=== PATIENT | female | born 1975 | race American Indian/Alaskan Native ===

== ENCOUNTER 2018-06-16 06:25 | Day surgery (SDC) | payer OTHER ==
[2018-06-16] MEDS ORDERED: LACTATED RINGERS 1,000 ML IV SCH (07:00)
--- NOTE | 2018-06-16 07:33 | Anesthesia Consultation ---
Anesthesia Consult and Med Hx Date of service: 06/16/18 - Airway Anesthetic Teeth Evaluation: Good ROM Head & Neck: Adequate Mental/Hyoid Distance: Adequate Mallampati Class: Class II Intubation Access Assessment: Probably Good - Pre-Operative Health Status ASA Pre-Surgery Classification: ASA3 - Central Nervous System Hx Back Pain: Yes (lumbar spinal stenosis) Hx Psychiatric Problems: No - Other Systems Hx Alcohol Use: Yes (Occas) Hx Cancer: No Hx Obesity: Yes (BMI 41.2)
--- NOTE | 2018-06-16 07:35 | Anesthesia Day of Surgery ---
Anesthesia Day of Surgery - Day of Surgery Patient Examined: Yes Patient H&P Reviewed: Yes Patient is NPO: Yes
--- NOTE | 2018-06-16 07:49 | Short Stay Summary ---
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 The patient has been treated in the past with cryosurgery and CKC. Her medical history is complicated by +HIV status. She elects for surgical management. - History Principal diagnosis: Mild cervical dysplasia Past Medical History: other (spinal stenosis) Past Surgical History: cholecystectomy, Other (cryosurgery; CKC; colostomy) Social history: single - Allergies and Medications Current Medications: Allergies No Known Allergies Allergy (Unverified 06/13/18 16:30) Home Medications Medication Instructions Recorded Confirmed Last Taken Type Emtricitab/Rilpiviri/Tenof Ala 1 tab PO DAILY 06/13/18 06/13/18 Unknown History [Odefsey Tablet] Active Medications Lactated Ringer's (Lactated Ringers) 1,000 mls @ 75 mls/hr IV DIRECT ANIBAL - Physical exam General appearance: no acute distress Integumentary: no rash HEENT: Atraumatic Lungs: Clear to auscultation Breasts: deferred Heart: Regular rate Gastrointestinal: normal Female Genitourinary: deferred Rectal Exam: deferred Extremities: no ischemia Neurological: Normal gait - Brief post op/procedure progress note Date of procedure: 06/16/18 Pre-op diagnosis: cervical dysplasia Post-op diagnosis: same Procedure: Loop electrocautery excision procedure and endocervical curettage Anesthesia: DESIREEA Surgeon: DRAKE ARCHIBALD Estimated blood loss: minimal Pathology: list (ectocervical tissue and endocervical curettings) Specimen disposition: to lab Condition: stable - Hospital course Hospital course: The patient was admitted the day of surgery and underwent a LEEP procedure. Please see operative note for details of surgery. Postoperative course is uneventful. - Disposition Condition at discharge: Good Disposition: [id number] TO HOME OR SELFCARE Short Stay Discharge Plan Activity: other (pelvic rest for 4 weeks) Diet: regular Additional Instructions: Scheduled postoperative visit with Dr. Avery in 4 weeks Prescriptions: Acetaminophen/Codeine [Tylenol /Codeine # 3 tab] 1 tab PO Q6H PRN #20 tab PRN Reason: Pain, Mild (1-3) Ibuprofen [Motrin] 800 mg PO Q8HR PRN #60 tablet PRN Reason: Pain, Mild (1-3)
[2018-06-16] MEDS ORDERED: ANCEF/STERILE WATER 2 GM/20 ML 2 GM/20 ML SYRINGE IV NR (08:00)
[2018-06-16] MEDS ORDERED: DIPRIVAN 10 MG/ML IV ONE (08:21)
[2018-06-16] MEDS ORDERED: XYLOCAINE MPF 2% ONE (08:21)
[2018-06-16] MEDS ORDERED: SUBLIMAZE ONE ×2 (08:21→08:56)
[2018-06-16] MEDS ORDERED: ZOFRAN ONE (08:45)
[2018-06-16] MEDS ORDERED: DECADRON ONE (08:45)
[2018-06-16] MEDS ORDERED: LUGOL'S SOLUTION 5% TP ONE (09:00)
[2018-06-16] MEDS ORDERED: MONSEL'S TP ONE (09:00)
[2018-06-16] MEDS ORDERED: NACL 0.9% IR ONE (09:00)
--- NOTE | 2018-06-16 09:09 | Operative Report ---
Operative Report Operative Report: Date of procedure: 06/16/2018 Pre-operative diagnosis: Cervical dysplasia Post-operative diagnosis: Same as above Procedure name(s): Loop electrocautery excision procedure and endocervical curettage Surgeon: Juli Nguyen M.D. Feeder/Folder: none Estimated blood loss: Minimal Anesthesia: Gen. endotracheal anesthesia Findings Nonstaining Lugol area at 6:00 on the ectocervix Pathology: Ectocervical tissue and endocervical curettage Indication: 43-year-old 003 with a history of persistent low-grade squamous intraepithelial lesion. The patient had undergone a previous cryosurgery and cold knife conization and had persistent disease. The patient elected to undergo surgical management of her cervical dysplasia. Procedure The patient was taken to the operating room and given general endotracheal anesthesia without complication. She is prepped and draped in a normal sterile fashion. A coated bivalve speculum was placed in the patient's vagina. The cervix was prepped with Lugol solution with evidence of a nonstaining area approximately 6 o'clock position. A 20 x 15 mm loop was used in order to remove the transformation zone of the ectocervix. Sharp curettage of the endocervical canal was performed. The cervical bed was cauterized with the Bovie cautery until hemostatic. Monsel solution was placed on the surgical site. The vaginal instruments were removed atraumatically. All sponge laps and needle counts correct 2. The patient was successfully extubated and taken to the recovery room in stable condition.
[2018-06-16] MEDS ORDERED: TYLENOL #3 PO PRN (09:30)
[2018-06-16] MEDS ORDERED: TORADOL IV PRN (10:00)
[2018-06-16 10:40] VITALS: BP 103/67
--- NOTE | 2018-06-16 12:06 | Post Anesthesia Evaluation ---
- Post Anesthesia Evaluation Patient Participated: Yes Airway Patent: Yes Stable Respiratory Function: Yes Nausea/Vomiting: No Temp > 96.8F: Yes Pain Manageable: Yes Adequeate Hydration: Yes Anesthesia Complications: No
== END 2018-06-16 11:00 | disposition home or self-care (01) ==
LOC: OR 06:25
PROVIDERS: ATTEND Obstetrics & Gynecology
DX: N87.0 Mild cervical dysplasia (principal); E66.9 Obesity, unspecified; Z68.41 Body mass index [BMI] 40.0-44.9, adult; Z72.89 Other problems related to lifestyle; Z98.890 Other specified postprocedural states; Z79.899 Other long term (current) drug therapy; Z90.49 Acquired absence of other specified parts of digestive tract
CPT/HCPCS: 57522; 81025; 88305; J1100; J2405; J2704; J3010; J7120

== ENCOUNTER → 2018-10-20 | Outpatient (CLI) | payer OTHER | END | disposition home or self-care (01) | LOC: SLR 11:00 | PROVIDERS: ATTEND Family Medicine | DX: G47.33 Obstructive sleep apnea (adult) (pediatric) (principal); E66.9 Obesity, unspecified; R06.83 Snoring | CPT/HCPCS: G0399 ==

== ENCOUNTER → 2018-11-15 | Outpatient (CLI) | payer OTHER | END | disposition home or self-care (01) | LOC: SLR 11:00 | PROVIDERS: ATTEND Otolaryngology | DX: G47.33 Obstructive sleep apnea (adult) (pediatric) (principal); R06.83 Snoring; E66.9 Obesity, unspecified | CPT/HCPCS: 95811 ==